=== PATIENT | female | born 1995 | race Caucasian/White ===

== ENCOUNTER 2022-01-19 03:22 | Inpatient (IN) | payer MEDICAID ==
[2022-01-19] MEDS ORDERED: Acetaminophen 500 MG Tab PO ONE (06:00)
[2022-01-19] MEDS ORDERED: Scopolamine 1.5 MG Transdermal Patch TOP ONE (06:00)
[2022-01-19] MEDS ORDERED: Dextrose 5%-Lactated Ringers 1,000 ML IV SCH (06:00)
[2022-01-19] MEDS ORDERED: Celecoxib 200 MG Cap PO ONE (06:00)
[2022-01-19] MEDS ORDERED: cefOXitin 2 GM Vial ONE (06:36)
[2022-01-19] MEDS ORDERED: Neostigmine Methylsulfate 1 MG/ML 5 ML Syringe ONE (06:50)
[2022-01-19] MEDS ORDERED: Ondansetron 4 MG/2 ML SDV ONE (06:50)
[2022-01-19] MEDS ORDERED: Rocuronium 50 MG/5 ML Vial ONE (06:50)
[2022-01-19] MEDS ORDERED: Dexamethasone 4 MG/ML SDV ONE (06:50)
[2022-01-19] MEDS ORDERED: Propofol 200 MG/20 ML SDV ONE (06:50)
[2022-01-19] MEDS ORDERED: Glycopyrrolate 0.2 MG/ML 5 ML MDV ONE (06:50)
[2022-01-19] MEDS ORDERED: Succinylcholine 200 MG/10 ML MDV ONE (06:50)
[2022-01-19] MEDS ORDERED: fentaNYL 250 MCG/5 ML SDV ONE ×2 (06:52→07:23)
[2022-01-19] MEDS ORDERED: cefOXitin 2 GM in Sodium Chloride 0.9% 50 ML IV ONE (07:00)
[2022-01-19] MEDS ORDERED: Ketamine 14 MG in Sodium Chloride 0.9% 19.86 ML IV SCH (07:30)
[2022-01-19] MEDS ORDERED: Ketamine 500 MG/5 ML MDV IV SCH (07:30)
[2022-01-19] MEDS ORDERED: Labetalol 20 MG/4 ML Syringe ONE (07:43)
[2022-01-19] MEDS ORDERED: fentaNYL 100 MCG/2 ML SDV ONE (07:45)
[2022-01-19 07:56] LABS: HEMOGLOBIN A1C 5.8 % (4.5-6.2)
[2022-01-19] MEDS ORDERED: hydrOXYzine HCL 100 MG/2 ML SDV IM ONE (09:09)
[2022-01-19] MEDS ORDERED: HYDROmorphone 0.5 MG/0.5 ML Syringe IVPUSH PRN (10:13)
[2022-01-19] MEDS ORDERED: Cyclobenzaprine 10 MG Tab PO PRN (10:15)
[2022-01-19] MEDS: HYDROmorphone 1 MG/ML Syringe IV PRN ×3 (10:17→23:02)
[2022-01-19] MEDS: Metoclopramide 10 MG/2 ML SDV IVPUSH PRN ×2 (10:24→19:43)
[2022-01-19] MEDS ORDERED: Labetalol 20 MG/4 ML Syringe IVPUSH PRN (11:00)
[2022-01-19] MEDS ORDERED: diphenhydrAMINE 50 MG/ML SDV IVPUSH PRN (11:00)
[2022-01-19] MEDS ORDERED: Acetaminophen 500 MG Tab PO PRN (11:00)
[2022-01-19] MEDS: hydrOXYzine HCL 100 MG/2 ML SDV IM PRN ×2 (13:03→22:07)
[2022-01-19] MEDS: Acetaminophen 500 MG Tab PO SCH ×3 (13:06→22:00)
[2022-01-19] MEDS: Dextrose 5%-Lactated Ringers 1,000 ML IV SCH ×2 (13:06→22:00)
[2022-01-19] MEDS: cefOXitin 2 GM in Sodium Chloride 0.9% 50 ML IV SCH ×2 (13:06→17:42)
[2022-01-19] MEDS: Pantoprazole 40 MG Vial IVPUSH SCH (13:06)
[2022-01-19] MEDS: Ondansetron 4 MG/2 ML SDV IVPUSH PRN ×2 (14:37→22:20)
[2022-01-19] MEDS: MVI, Adult with Vitamin K 10 ML, Thiamine 200 MG, Zinc/Copper/Manganese/Selenium 1 ML i... IV SCH ×4 (15:39)
[2022-01-19] MEDS: Heparin Sodium 5,000 Units/ML Vial SUBCUT SCH (17:42)
[2022-01-19] MEDS: traMADol 50 MG Tab PO PRN (19:39)
[2022-01-20] MEDS: cefOXitin 2 GM in Sodium Chloride 0.9% 50 ML IV SCH ×4 (00:09→17:30)
[2022-01-20] MEDS ORDERED: Iopamidol 612 MG/ML 50 ML SDV PO ONE (04:16)
[2022-01-20] MEDS: traMADol 50 MG Tab PO PRN ×3 (04:41→19:22)
[2022-01-20] MEDS: Dextrose 5%-Lactated Ringers 1,000 ML IV SCH (04:41)
[2022-01-20] MEDS: Heparin Sodium 5,000 Units/ML Vial SUBCUT SCH ×2 (05:35→17:19)
[2022-01-20] MEDS: Metoclopramide 10 MG/2 ML SDV IVPUSH PRN (05:43)
[2022-01-20] MEDS: Acetaminophen 500 MG Tab PO SCH (05:52)
[2022-01-20] MEDS: Celecoxib 200 MG Cap PO SCH ×2 (08:52→20:14)
[2022-01-20] MEDS ORDERED: Dextrose 5%-Lactated Ringers 1,000 ML IV SCH (09:00)
[2022-01-20] MEDS: oxyCODONE 5 MG Tab PO PRN ×3 (09:04→22:47)
[2022-01-20] MEDS: SCOPOLAMINE PATCH CHECK TOP SCH (09:05)
[2022-01-20] MEDS: Pantoprazole 40 MG Vial IVPUSH SCH (11:31)
[2022-01-20] MEDS: MVI, Adult with Vitamin K 10 ML, Thiamine 200 MG, Zinc/Copper/Manganese/Selenium 1 ML i... IV SCH ×4 (15:11)
[2022-01-20] MEDS: Ondansetron 4 MG Tab.DIS PO PRN (23:00)
[2022-01-21] MEDS: Heparin Sodium 5,000 Units/ML Vial SUBCUT SCH (06:06)
[2022-01-21] MEDS ORDERED: Cyanocobalamin (Vitamin B12) 1,000 MCG/ML SDV IM ONE (09:00)
[2022-01-21] MEDS: Celecoxib 200 MG Cap PO SCH (09:27)
[2022-01-21] MEDS: SCOPOLAMINE PATCH CHECK TOP SCH (09:28)
[2022-01-21] MEDS: Ondansetron 4 MG Tab.DIS PO PRN (09:32)
[2022-01-21] MEDS: oxyCODONE 5 MG Tab PO PRN (09:32)
== END 2022-01-21 10:30 | disposition home or self-care (01) | DRG 621 ==
LOC: JP.SDS 05:25 → JP.MS 09:00 → EDSTATUS 09:00
PROVIDERS: ADMIT Surgery; ATTEND Surgery
PROC: 0D164ZA Bypass Stomach to Jejunum, Percutaneous Endoscopic Approach (ICD-10-PCS; principal; 2022-01-19)
PROC: 0FB24ZX Excision of Left Lobe Liver, Percutaneous Endoscopic Approach, Diagnostic (ICD-10-PCS; 2022-01-19)
PROC: 0BQT4ZZ Repair Diaphragm, Percutaneous Endoscopic Approach (ICD-10-PCS; 2022-01-19)
DX: E66.01 Morbid (severe) obesity due to excess calories (principal); R16.0 Hepatomegaly, not elsewhere classified; K21.9 Gastro-esophageal reflux disease without esophagitis; K44.9 Diaphragmatic hernia without obstruction or gangrene; M62.838 Other muscle spasm; N76.0 Acute vaginitis; Z91.09 Other allergy status, other than to drugs and biological substances; Z68.43 Body mass index [BMI] 50.0-59.9, adult
CPT/HCPCS: 36415; 74240; 74240-26; 82947; 83036; 83735; 84100; 84703; 85027; 86850; 86900; 86901; 88307; 88313; A9270-GY; C9113; J0171; J0330; J0694; J1100; J1170; J1644; J2405; J2704; J2710; J2765; J2795; J3010; J3410; J3411; J3420; J3490; J7121; Q0162; Q9967